=== PATIENT | male | born 1995 | race Caucasian/White ===

== ENCOUNTER 2017-05-10 15:52 | Inpatient (IN) | payer MEDICAID ==
[~2017-05-10] VITALS: Ht 172.7 cm; Wt 84.9 kg
[2017-05-10 17:40] LABS: CALCIUM 9.5 mg/dL (8.5-10.1); CARBON DIOXIDE 27.3 mmol/L (21-32); CHLORIDE SERUM 102 mmol/L (98-107); GFR1 > 60 mL/min; GLUCOSE SERUM 94 mg/dL (74-106); SODIUM SERUM 142 mmol/L (136-145)
[2017-05-10 17:42] LABS: BASOPHIL % 0.2 % (0-2); PLATELET COUNT 319 x10^3mcL (130-400); RED CELL DISTRIBUTION WIDTH 13.9 % (11.5-14.5)
[2017-05-10 17:55] LABS: T3 TOTAL 1.21 ng/mL
[2017-05-10 18:00] LABS: AMPHETAMINE QUAL UR NONE DETECTED (NEG <=1000)
[2017-05-10 18:22] LABS: FREE T4 1.07 ng/dL (0.76-1.46); FREE THYROXINE INDEX 2.8 ug/dL (1.4-4.5); T4(THYROXINE) 8.2 ug/dL (4.7-13.3)
[2017-05-10 18:23] LABS: ALBUMIN 4.4 g/dL (3.4-5.0); ALKALINE PHOSPHATASE 79 U/L (46-116); ALT/SGPT 36 U/L (16-63); AST/SGOT 41 U/L (15-37); CHOLESTEROL 169 mg/dL (<200); TOTAL PROTEIN, SERUM 8.1 g/dL (6.4-8.2)
[2017-05-10] MEDS ORDERED: HALOPERIDOL10 MG PO (21:05)
[2017-05-10] MEDS ORDERED: DEPAKOTE500 MG PO (21:05)
[2017-05-10 21:29] LABS: CHOLESTEROL/HDL RATIO 3.9; MAGNESIUM 2.2 mg/dL (1.8-2.4); PHOSPHOROUS 4.3 mg/dL (2.5-4.9)
[2017-05-10 22:06] LABS: microscopic required? NO
[2017-05-10 22:15] LABS: urine erythrocyte NEGATIVE (NEGATIVE)
[2017-05-11 04:45] LABS: CALCIUM 8.5 mg/dL (8.5-10.1); CARBON DIOXIDE 25.9 mmol/L (21-32); CHLORIDE SERUM 108 mmol/L (98-107); CREATININE SERUM 0.9 mg/dL (0.7-1.3); GFR1 > 60 mL/min; GLUCOSE SERUM 95 mg/dL (74-106); MAGNESIUM 2.4 mg/dL (1.8-2.4); PHOSPHOROUS 4.7 mg/dL (2.5-4.9); POTASSIUM SERUM 4.5 mmol/L (3.5-5.1); SODIUM SERUM 142 mmol/L (136-145)
[2017-05-11 04:47] LABS: BASOPHIL % 0.3 % (0-2); PLATELET COUNT 273 x10^3mcL (130-400); RED CELL DISTRIBUTION WIDTH 13.9 % (11.5-14.5)
[2017-05-11 10:12] VITALS: BP 127/74
[2017-05-11 19:43] VITALS: BP 146/85
[2017-05-12 05:16] VITALS: BP 113/62
[2017-05-12 07:26] LABS: CALCIUM 8.8 mg/dL (8.5-10.1); CARBON DIOXIDE 27.5 mmol/L (21-32); CHLORIDE SERUM 109 mmol/L (98-107); GFR1 > 60 mL/min; GLUCOSE SERUM 92 mg/dL (74-106); MAGNESIUM 2.2 mg/dL (1.8-2.4); PHOSPHOROUS 4.3 mg/dL (2.5-4.9); POTASSIUM SERUM 4.1 mmol/L (3.5-5.1); SODIUM SERUM 144 mmol/L (136-145)
[2017-05-12 09:35] VITALS: BP 148/85
[2017-05-12 10:02] LABS: BASOPHIL % 0.5 % (0-2); PLATELET COUNT 269 x10^3mcL (130-400); RED CELL DISTRIBUTION WIDTH 13.8 % (11.5-14.5)
[2017-05-12 10:59] VITALS: BP 148/85
[2017-05-12] MEDS ORDERED: SEROQUEL200 MG PO (14:09)
[2017-05-12] MEDS ORDERED: SEROQUEL100 MG PO (14:09)
[2017-05-12] MEDS ORDERED: MECLIZINE HCL12.5 MG PO (14:23)
[2017-05-12] MEDS ORDERED: COG1 PO (14:23)
[2017-05-12] MEDS ORDERED: DIVALPROEX SOD500 M2 PO (14:23)
== END 2017-05-12 15:04 | disposition home or self-care (01) | DRG 52 ==
LOC: ED 15:52 → MU 20:51 → DU 20:51 → MU 05-11 09:29
PROVIDERS: Family Medicine; Specialist
DX: G92 Toxic encephalopathy (principal); M62.82 Rhabdomyolysis; R25.3 Fasciculation; F25.0 Schizoaffective disorder, bipolar type; T43.4X5A Adverse effect of butyrophenone and thiothixene neuroleptics, initial encounter; T40.7X1A Poisoning by cannabis (derivatives), accidental (unintentional), initial encounter; E78.5 Hyperlipidemia, unspecified; R73.03 Prediabetes; F17.210 Nicotine dependence, cigarettes, uncomplicated; F12.10 Cannabis abuse, uncomplicated; Y92.009 Unspecified place in unspecified non-institutional (private) residence as the place of occurrence of the external cause
CPT/HCPCS: 83880; 84439; G0480; J0515; J2060; J3411; J3475; J3490; J7030; Q0092